=== PATIENT | female | born 2000 | race Caucasian/White ===

== ENCOUNTER 2021-07-04 07:06 | Emergency (ER) | payer OTHER ==
[~2021-07-04] VITALS: Ht 165.1 cm; Wt 63.5 kg
== END 2021-07-04 13:11 | disposition home or self-care (01) ==
LOC: EMR PED 07:06 → ER 07:06 → EMR PED 10:34
DX: N39.0 Urinary tract infection, site not specified (principal); Z20.822 Contact with and (suspected) exposure to COVID-19

== ENCOUNTER 2023-01-10 23:24 | Emergency (ER) | payer OTHER ==
[~2023-01-10] VITALS: Ht 160 cm; Wt 63.5 kg
[2023-01-10] MEDS ORDERED: SPRINTEC 28 DA1 EACH (23:41)
== END 2023-01-11 03:12 | disposition home or self-care (01) ==
LOC: ER 23:24
DX: S91.321A Laceration with foreign body, right foot, initial encounter (principal); W26.8XXA Contact with other sharp object(s), not elsewhere classified, initial encounter; Y92.89 Other specified places as the place of occurrence of the external cause; Y93.89 Activity, other specified

== ENCOUNTER 2023-01-20 08:42 | Emergency (ER) | payer OTHER ==
[~2023-01-20] VITALS: Ht 160 cm; Wt 65.8 kg
[~2023-01-20 08:42] MED LIST: SPRINTEC 28 DA1 EACH
== END 2023-01-20 09:46 | disposition home or self-care (01) ==
LOC: ER 08:42
DX: Z48.02 Encounter for removal of sutures (principal)